=== PATIENT | female | born 1970 | race Caucasian/White ===

== ENCOUNTER 2019-02-14 02:07 | Emergency (ER) | payer BC ==
[~2019-02-14] VITALS: Ht 157.5 cm; Wt 70.3 kg
[~2019-02-14 02:07] MED LIST: AGM875T PO; ALBU8.5H2 INH; CYCL10TA9 PO; DOXY-233 PO; DOXY100C2 PO; FLUT1DIS26 INH; ONDA8TAB13 PO; TRAM-21 PO
[2019-02-14] MEDS ORDERED: ACETAMINOPHEN 500 MG TAB (TYLENOL) PO ONE (02:30)
[2019-02-14 02:45] LABS: BASOPHILS % (AUTO) 0 % (0-10); EOSINOPHILS # (AUTO) 0.1 10^3/uL (0.0-0.3); EOSINOPHILS % (AUTO) 1 % (0-10); HEMATOCRIT 39 % (35-52); HEMOGLOBIN 12.7 G/DL (11.5-16.0); LYMPHOCYTES # (AUTO) 0.7 X 10^3 (1.0-4.0); LYMPHOCYTES % (AUTO) 8 % (12-44); MEAN CORPUSCULAR HEMOGLOBIN 26 PG (25-34); MEAN CORPUSCULAR HGB CONC 33 G/DL (32-36); MEAN CORPUSCULAR VOLUME 79 FL (80-99); MEAN PLATELET VOLUME 9.4 FL (7.4-10.4); MONOCYTES # (AUTO) 0.2 X 10^3 (0.0-1.0); MONOCYTES % (AUTO) 2 % (0-12); NEUTROPHILS # (AUTO) 7.1 X 10^3 (1.8-7.8); NEUTROPHILS % (AUTO) 88 % (42-75); PLATELET COUNT 341 10^3/uL (130-400); RED CELL DISTRIBUTION WIDTH 14.2 % (10.0-14.5)
[2019-02-14 03:01] LABS: ANISOCYTOSIS SLIGHT; BAND NEUTROPHILS 0 %; BASOPHILS % (MANUAL) 0 %; EOSINOPHILS % (MANUAL) 0 %; LYMPHOCYTES % (MANUAL) 9 %; MONOCYTES % (MANUAL) 2 %; NEUTROPHILS % (MANUAL) 85 %; REACTIVE LYMPHOCYTES 4 %; TOXIC GRANULATION/VACUOLAZATIO 1+
[2019-02-14 03:05] LABS: ALANINE AMINOTRANSFERASE 20 U/L (0-55); ALBUMIN 4.5 GM/DL (3.2-4.5); ALKALINE PHOSPHATASE 103 U/L (40-136); BILIRUBIN,TOTAL 0.4 MG/DL (0.1-1.0); BUN/CREATININE RATIO 13; CALCIUM 9.8 MG/DL (8.5-10.1); CARBON DIOXIDE 21 MMOL/L (21-32); CHLORIDE 105 MMOL/L (98-107); CREATININE SERUM 0.89 MG/DL (0.60-1.30); GFR ESTIMATED > 60; GLUCOSE 105 MG/DL (70-105); POTASSIUM 3.8 MMOL/L (3.6-5.0); SODIUM 140 MMOL/L (135-145); TOTAL PROTEIN 7.6 GM/DL (6.4-8.2)
[2019-02-14 03:24] LABS: BILIRUBIN,URINE NEGATIVE (NEGATIVE); CLARITY,URINE SLIGHTLY CLOUDY; COLOR,URINE YELLOW; GLUCOSE, URINE (UA) NEGATIVE (NEGATIVE); KETONES,URINE NEGATIVE (NEGATIVE); LEUKOCYTE ESTERASE ,URINE 2+ (NEGATIVE); NITRITE,URINE NEGATIVE (NEGATIVE); PH,URINE 7 (5-9); PROTEIN,URINE 1+ (NEGATIVE); UROBILINOGEN,URINE NORMAL (NORMAL)
--- NOTE | 2019-02-14 03:30 | ED General ---
General Chief Complaint: Fever-Adult/Adol Stated Complaint: FEVER,SHAKING,HURTS ALL OVER Nursing Triage Note: PT VERBALIZED DAY BEFORE YESTERDAY STANDING IN BASEMENT WATER FOR 10 MIN APPROX. STATES NOW SORE THRAOT, HEADACHE, FEVER, EAR PAIN. Nursing Sepsis Screen: No Definite Risk Source of Information: Patient History of Present Illness Date Seen by Provider: February 14, 2019 Time Seen by Provider: 02:25 Initial Comments PT ARRIVES VIA POV FROM HOME C/O SUBJECTIVE FEVER, CHILLS AND BODY ACHES--BEGAN 2 HOURS AGO STATES HER LEGS WERE SHAKING FOR 45 MINUTES, BUT NOT NOW. 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 HERNANDEZ Allergies and Home Medications Allergies Coded Allergies: hydrocodone (Unverified Adverse Reaction, Mild, N/V, 09/07/16) Home Medications Albuterol Sulfate 8.5 Gm Aer.w.adap, 1 INHALER INH PRN, (Reported) Cefdinir 300 Mg Capsule, 300 MG PO BID Prescribed by: LONNIE MARTEL on 02/14/19 0359 Patient Home Medication List Home Medication List Reviewed: Yes Review of Systems Review of Systems Constitutional: see HPI, chills; No dizziness; fever; No malaise, No weakness EENTM: see HPI, throat pain; No ear pain, No nose congestion Respiratory: no symptoms reported; No cough, No short of breath, No wheezing Cardiovascular: no symptoms reported Gastrointestinal: no symptoms reported; No abdominal pain, No diarrhea, No loss of appetite, No nausea, No vomiting Genitourinary: no symptoms reported, other (FREQUEBNTLY HAS HEMATURIA, NO KNOWN CAUSE) Musculoskeletal: see HPI (BODY ACHES) Skin: no symptoms reported; No rash Psychiatric/Neurological: No Symptoms Reported; Denies Headache, Denies Numbness, Denies Paresthesia, Denies Seizure, Denies Tingling, Denies Weakness Hematologic/Lymphatic: No Symptoms Reported Immunological/Allergic: no symptoms reported Past Teebdbh-Erkflt-Qywycv Hx Patient Social History Alcohol Use: Denies Use Recreational Drug Use: No Smoking Status: Never a Smoker 2nd Hand Smoke Exposure: No Recent Foreign Travel: No Contact w/Someone Who Travel: No Recent Infectious Disease Expo: No Recent Hopitalizations: No Immunizations Up To Date Tetanus Booster (TDap): More than 5yrs Seasonal Allergies Seasonal Allergies: No Past Medical History Surgeries: Yes (SINUS SURGERY) Respiratory: Yes Asthma Cardiac: No Neurological: No Female Reproductive Disorders: Menstrual Problems Genitourinary: Yes (HEMATURIA--NO KNOWN CAUSE) Gastrointestinal: Yes (vitamin B-12 and vitamin D deficiencies) Musculoskeletal: No Endocrine: No HEENT: Yes (S/P SINUS SURGERY) Cancer: No Psychosocial: No Integumentary: No Blood Disorders: No Adverse Reaction/Blood Tranf: No Physical Exam Vital Signs Vital Signs - First Documented 02/14/19 02:18 Temp 100.8 Pulse 108 Resp 18 B/P (MAP) 138/86 (103) Pulse Ox 95 O2 Delivery Room Air Capillary Refill : Less Than 3 Seconds Height, Weight, BMI Height: 5'2.00" Weight: 155lbs. oz. 70.656503hy; BMI Method:Estimated General Appearance: No Apparent Distress, WD/WN, Anxious, Other (SMILING, DOES NOT APPEAR ILL. TALKS VERY RAPIDLY AND AT LENGTH) HEENT: PERRL/EOMI, Other (TM'S WITH EFFUSIONS; MILD PHARYNGITIS, CLEAR POST NASAL DRAINAGE AND POSTERIOR PHARYNGEAL ERYTHEMA. NO SINUS TENDERNESS) Neck: Full Range of Motion, Non Tender, Supple, Lymphadenopathy (L) (MILD ANTER IOR), Lymphadenopathy (R) (MILD ANTERIOR) Respiratory: Normal Breath Sounds, No Accessory Muscle Use, No Respiratory Distress Cardiovascular: Regular Rate, Rhythm, No Edema, No JVD, No Murmur, Normal Peripheral Pulses Gastrointestinal: Non Tender, Soft Back: No CVA Tenderness Extremity: Normal Inspection, No Pedal Edema Neurologic/Psychiatric: Alert, Oriented x3, No Motor/Sensory Deficits, pulverizer II- XII Norm as Tested Skin: Normal Color, Warm/Dry; No Rash Focused Exam Lactate Level 02/14/19 02:50: Lactic Acid Level 1.59 Lactic Acid Level Laboratory Tests Test 02/14/19 02:50 Lactic Acid Level 1.59 MMOL/L (0.50-2.00) Progress/Results/Core Measures Suspected Sepsis Recent Fever Within 48 Hours: No Infection Criteria Present: None New/Unexplained Altered Menta: No Sepsis Screen: No Definite Risk SIRS Temperature:100.8 Pulse: 108 Respiratory Rate: 18 Laboratory Tests 02/14/19 02:35: White Blood Count 8.0 Blood Pressure 138 /86 Mean: 103 02/14/19 02:50: Lactic Acid Level 1.59 Laboratory Tests 02/14/19 02:35: Creatinine 0.89, Platelet Count 341, Total Bilirubin 0.4 Results/Orders Lab Results Laboratory Tests Test 02/14/19 02:35 02/14/19 02:38 02/14/19 02:50 02/14/19 03:18 Range/Units White Blood Count 8.0 4.3-11.0 10^3/uL Red Blood Count 4.90 4.35-5.85 10^6/uL Hemoglobin 12.7 11.5-16.0 G/DL Hematocrit 39 35-52 % Mean Corpuscular Volume 79 L 80-99 FL Mean Corpuscular Hemoglobin 26 25-34 PG Mean Corpuscular Hemoglobin Concent 33 32-36 G/DL Red Cell Distribution Width 14.2 10.0-14.5 % Platelet Count 341 130-400 10^3/uL Mean Platelet Volume 9.4 7.4-10.4 FL Neutrophils (%) (Auto) 88 H 42-75 % Lymphocytes (%) (Auto) 8 L 12-44 % Monocytes (%) (Auto) 2 0-12 % Eosinophils (%) (Auto) 1 0-10 % Basophils (%) (Auto) 0 0-10 % Neutrophils # (Auto) 7.1 1.8-7.8 X 10^3 Lymphocytes # (Auto) 0.7 L 1.0-4.0 X 10^3 Monocytes # (Auto) 0.2 0.0-1.0 X 10^3 Eosinophils # (Auto) 0.1 0.0-0.3 10^3/uL Basophils # (Auto) 0.0 0.0-0.1 10^3/uL Neutrophils % (Manual) 85 % Lymphocytes % (Manual) 9 % Monocytes % (Manual) 2 % Eosinophils % (Manual) 0 % Basophils % (Manual) 0 % Band Neutrophils 0 % Reactive Lymphocytes 4 % Toxic Granulation 1+ Anisocytosis SLIGHT Sodium Level 140 135-145 MMOL/L Potassium Level 3.8 3.6-5.0 MMOL/L Chloride Level 105 98-107 MMOL/L Carbon Dioxide Level 21 21-32 MMOL/L Anion Gap 14 5-14 MMOL/L Blood Urea Nitrogen 12 7-18 MG/DL Creatinine 0.89 0.60-1.30 MG/DL Estimat Glomerular Filtration Rate > 60 BUN/Creatinine Ratio 13 Glucose Level 105 70-105 MG/DL Calcium Level 9.8 8.5-10.1 MG/DL Corrected Calcium 9.4 8.5-10.1 MG/DL Total Bilirubin 0.4 0.1-1.0 MG/DL Aspartate Amino Transf (AST/SGOT) 19 5-34 U/L Alanine Aminotransferase (ALT/SGPT) 20 0-55 U/L Alkaline Phosphatase 103 40-136 U/L Total Protein 7.6 6.4-8.2 GM/DL Albumin 4.5 3.2-4.5 GM/DL Monoscreen NEGATIVE NEGATIVE Group A Streptococcus Screen NEGATIVE NEGATIVE Lactic Acid Level 1.59 0.50-2.00 MMOL/L Urine Color YELLOW Urine Clarity SLIGHTLY CLOUDY Urine pH 7 5-9 Urine Specific [place] 1.010 L 1.016-1.022 Urine Protein 1+ H NEGATIVE Urine Glucose (UA) NEGATIVE NEGATIVE Urine Ketones NEGATIVE NEGATIVE Urine Nitrite NEGATIVE NEGATIVE Urine Bilirubin NEGATIVE NEGATIVE Urine Urobilinogen NORMAL NORMAL MG/DL Urine Leukocyte Esterase 2+ H NEGATIVE Urine RBC (Auto) 3+ H NEGATIVE Urine RBC 0-2 /HPF Urine WBC 5-10 H /HPF Urine Squamous Epithelial Cells 2-5 /HPF Urine Crystals NONE /LPF Urine Bacteria TRACE /HPF Urine Casts NONE /LPF Urine Mucus SMALL H /LPF Urine Culture Indicated YES Micro Results Microbiology 02/14/19 Influenza Types A,B Antigen (ENA) - Final, Complete My Orders Orders - LONNIE MARTEL DO Ed Iv/Invasive Line Start (02/14/19 02:26) Cbc With Automated Diff (02/14/19 02:26) Comprehensive Metabolic Panel (02/14/19 02:26) Lactic Acid Analyzer (02/14/19 02:26) Monotest (02/14/19 02:26) Rapid Strep A Screen (02/14/19 02:26) Ua Culture If Indicated (02/14/19 02:26) Blood Culture (02/14/19 02:26) Acetaminophen Tablet (Tylenol Tablet) (02/14/19 02:30) Influenza A And B Antigens (02/14/19 02:35) Manual Differential (02/14/19 02:35) Urine Culture (02/14/19 03:18) Cefdinir Capsule (Omnicef Capsule) (02/14/19 04:00) Medications Given in ED Current Medications Medications Dose Ordered Sig/Kayley Route Start Time Stop Time Status Last Admin Dose Admin Acetaminophen 1,000 mg ONCE ONCE PO 02/14/19 02:30 02/14/19 02:31 UNV 02/14/19 02:46 1,000 MG Vital Signs/I&O 02/14/19 02/14/19 02:18 02:46 Temp 100.8 100.8 Pulse 108 Resp 18 B/P (MAP) 138/86 (103) Pulse Ox 95 O2 Delivery Room Air Capillary Refill : Less Than 3 Seconds Blood Pressure Mean: 103 Progress Note : Progress Note TEMP DOWN AND FEELS MUCH BETTER AT DISMISSAL Departure Impression Primary Impression: Pharyngitis Additional Impression: UTI (urinary tract infection) Disposition: 01 HOME, SELF-CARE Condition: Stable Departure-Patient Inst. Referrals: CHRISTIANA HERNANDEZ MD (PCP/Family) Primary Care Physician Patient Instructions: Sore Throat, Adult (DC), Urinary Tract Infection, Adult (DC) Add. Discharge Instructions: LOTS OF CLEAR LIQUIDS FREQUENT SALT WATER GARGLES TYLENOL 1 GRAM/ MOTRIN 800 MG 4 TIMES A DAY FOR PAIN OR FEVER FOLLOW UP WITH YOUR DR IN 3-4 DAYS IF NO BETTER All discharge instructions reviewed with patient and/or family. Voiced understanding. Scripts Cefdinir (Cefdinir) 300 Mg Capsule 300 MG PO BID for FOR INFECTION, #20 CAP Prov: LONNIE MARTEL DO 02/14/19 LONNIE MARTEL DO February 14, 2019 03:30
[2019-02-14 03:39] LABS: BACTERIA,URINE TRACE /HPF; RBC,URINE 0-2 /HPF
[2019-02-14 03:50] VITALS: BP 125/80
[2019-02-14] MEDS ORDERED: CEFD300C3 PO (03:53)
[2019-02-14] MEDS ORDERED: CEFDINIR 300 MG (OMNICEF) CAP PO ONE (04:00)
== END 2019-02-14 03:50 | disposition home or self-care (01) ==
LOC: EDUNIT# 02:07 → ER 02:09
DX: J02.9 Acute pharyngitis, unspecified (principal); N39.0 Urinary tract infection, site not specified; J45.909 Unspecified asthma, uncomplicated; Z88.5 Allergy status to narcotic agent; Z87.448 Personal history of other diseases of urinary system; Z98.890 Other specified postprocedural states
CPT/HCPCS: 36415; 80053; 81000; 83605; 85007; 85027; 86308; 87040; 87088; 87430; 87804

== ENCOUNTER → 2020-04-14 | Outpatient (CLI) | payer BC ==
[~2020-04-14] MED LIST changes: +CEFD300C3 PO
--- NOTE | 2020-04-14 13:59 | Diagnostic Imaging Report ---
PROCEDURE: US right lower extremity venous. TECHNIQUE: Multiple real-time grayscale images were obtained over the right lower extremity in various projections. Additional spectral analysis and color Doppler duplex images were also obtained. INDICATION: Right leg pain and swelling. There is no evidence of right lower extremity DVT. Right lower extremity deep venous system shows normal compressibility with normal response to augmentation and Valsalva. No fluid collection or mass is detected. IMPRESSION: No evidence of right lower extremity DVT. Dictated by: Dictated on workstation # [id number]
== END ==
LOC: RAD 13:19
PROVIDERS: ATTEND Nurse Practitioner Family
DX: M79.604 Pain in right leg (principal); M79.89 Other specified soft tissue disorders

== ENCOUNTER → 2022-02-16 | Outpatient (CLI) | payer BC ==
--- NOTE | 2022-02-16 16:40 | Diagnostic Imaging Report ---
EXAMINATION: CT abdomen and pelvis without contrast from 02/16/2022. TECHNIQUE: Multiple contiguous axial images were obtained through the abdomen and pelvis without the use of intravenous contrast. Auto Exposure Controls were utilized during the CT exam to meet ALARA standards for radiation dose reduction. INDICATION: Hematuria and left flank pain. FINDINGS: There are several nonspecific nodules in the visualized lung bases with the largest abutting the major fissure in the right lower lobe measuring 8.2 mm in size. There are two less than 5 mm nodules in the posterior right lower lobe. Vague scattered more ill-defined airspace opacity seen within the right lower lobe and right middle lobe, perhaps due to inflammatory process. The nonopacified abdominal viscera limit evaluation of the viscera but no gross abnormality appreciated within the liver or spleen. The gallbladder and the pancreas appear normal. The adrenal glands are unremarkable. There is no nephrolithiasis or hydronephrosis with no ureteral stones seen on either side. Urinary bladder is grossly unremarkable. There is diverticular disease without evidence for diverticulitis. There is a nonobstructive bowel gas pattern. The appendix appears normal. There is a fat-containing umbilical hernia. There is no ascites or free air. There is no lymphadenopathy. There is no acute osseous abnormality. IMPRESSION: 1. No nephrolithiasis or hydronephrosis. 2. Scattered bilateral lung nodules which are nonspecific with more vague airspace opacities in the right lung, possibly due to an inflammatory or infectious etiology. Dedicated imaging of the chest recommended. Dictated by: Dictated on workstation # [id number]
== END ==
LOC: RAD 14:52
PROVIDERS: ATTEND Nurse Practitioner Family
DX: R91.8 Other nonspecific abnormal finding of lung field (principal); R31.9 Hematuria, unspecified; R10.9 Unspecified abdominal pain
CPT/HCPCS: 74176

== ENCOUNTER → 2022-02-18 | Outpatient (CLI) | payer BC ==
--- NOTE | 2022-02-18 16:18 | Diagnostic Imaging Report ---
PROCEDURE: CT chest without contrast. TECHNIQUE: Multiple contiguous axial images were obtained through the chest without the use of intravenous contrast. Auto Exposure Controls were utilized during the CT exam to meet ALARA standards for radiation dose reduction. INDICATION: There are two ill-defined nodules in the right middle lobe each measuring 3 mm in diameter seen on page 69 of 146. There is a 7 mm nodule in the right lower lobe. This is on page 64. There is 3 mm nodule in the posterior basilar segment of right lower lobe on page 68. In the left lung there is a 5 mm nodule in the lingular segment near the fissure laterally. There is a calcified granuloma in the medial basilar segment of the left lower lobe on page 99. There is no hilar or mediastinal lymphadenopathy. There are no effusions or pneumothoraces. There are no infiltrates. Osseous structures are unremarkable. IMPRESSION: There are granulomatous changes present. There are several small nodular opacities of uncertain significance. Recommend six-month interval follow-up to assess for change. Dictated by: Dictated on workstation # [id number]
== END ==
LOC: RAD 15:45
PROVIDERS: ATTEND Nurse Practitioner Family
DX: J84.10 Pulmonary fibrosis, unspecified (principal); R91.8 Other nonspecific abnormal finding of lung field
CPT/HCPCS: 71250

== ENCOUNTER → 2022-09-30 | Outpatient (CLI) | payer BC ==
--- NOTE | 2022-09-30 14:34 | Diagnostic Imaging Report ---
EXAMINATION: CT chest without contrast. TECHNIQUE: Multiple contiguous axial images were obtained through the chest without the use of intravenous contrast. All CT scans use one or more of the following dose optimizing techniques: automated exposure control, MA and/or KvP adjustment based on patient size and exam type or iterative reconstruction. HISTORY: Six-month followup for pulmonary nodules. COMPARISON: 02/18/2022. FINDINGS: The heart size is within normal limits. No pericardial effusion is present. There is no mediastinal, hilar, or axillary lymphadenopathy. Stable nodule in the mid right lung measuring 0.8 cm. Additional smaller scattered nodules in the right lung appear stable. No new suspicious pulmonary nodules. There are no focal areas of consolidation. No central endobronchial obstructing lesions are identified. There is no pleural effusion or pneumothorax. The osseous structures demonstrate no acute abnormalities. Limited views of the upper abdominal structures demonstrate no acute abnormalities. Both adrenal glands are unremarkable. IMPRESSION: 1. Stable subcentimeter pulmonary nodules measuring up to 0.8 cm in the right lung. No new suspicious pulmonary nodules. Recommend followup in [address] to ensure stability. Dictated by: Dictated on workstation # [id number]
== END ==
LOC: RAD 12:28
PROVIDERS: ATTEND Nurse Practitioner Family
DX: R91.8 Other nonspecific abnormal finding of lung field (principal)
CPT/HCPCS: 71250